=== PATIENT | female | born 1990 | race Caucasian/White ===

== ENCOUNTER 2019-01-09 09:55 | Outpatient (CLI) | payer BC ==
[~2019-01-09] VITALS: Ht 162.6 cm; Wt 105.4 kg
[2019-01-09 10:17] VITALS: BP 125/62
== END 2019-01-09 11:22 | disposition home or self-care (01) ==
LOC: LDOP 09:55
PROVIDERS: ATTEND Obstetrics & Gynecology
DX: Z34.93 Encounter for supervision of normal pregnancy, unspecified, third trimester (principal); Z3A.35 35 weeks gestation of pregnancy
CPT/HCPCS: 59025; 99201; G0463